=== PATIENT | female | born 1990 | race Caucasian/White ===

== ENCOUNTER 2017-06-24 10:39 | Outpatient (CLI) | payer BC, OTHER ==
[~2017-06-24] VITALS: Ht 162.6 cm; Wt 90.9 kg
[~2017-06-24 10:39] MED LIST: ENDOCET 5-3251 EACH PO; Motrin PO
[2017-06-24 11:01] VITALS: BP 128/71
[2017-06-24] MEDS ORDERED: CEPHALEXIN500 MG PO (11:08)
[2017-06-24] MEDS ORDERED: PRENATAL TABLE1 EAC3 PO (11:08)
[2017-06-24 13:10] VITALS: BP 119/71
== END 2017-06-24 14:00 | disposition home or self-care (01) ==
LOC: LDRP-OP 10:39 → 2WEST 10:40 → LDRP-OP 09-02 10:43
DX: O47.03 False labor before 37 completed weeks of gestation, third trimester (principal); O23.593 Infection of other part of genital tract in pregnancy, third trimester; N76.0 Acute vaginitis; B96.89 Other specified bacterial agents as the cause of diseases classified elsewhere; Z3A.34 34 weeks gestation of pregnancy
CPT/HCPCS: 59025; 87086; G0378; J0702; J7120

== ENCOUNTER 2017-06-25 12:00 | Outpatient (CLI) | payer BC, OTHER ==
[~2017-06-25] VITALS: Ht 162.6 cm; Wt 90.7 kg
[~2017-06-25 12:00] MED LIST changes: +CEPHALEXIN500 MG PO; +PRENATAL TABLE1 EAC3 PO
[2017-06-25 12:23] VITALS: BP 118/65
== END 2017-06-25 14:00 | disposition home or self-care (01) ==
LOC: LDRP-OP 12:00 → 2WEST 12:01 → LDRP-OP 23:19
DX: O47.03 False labor before 37 completed weeks of gestation, third trimester (principal); Z3A.34 34 weeks gestation of pregnancy; O99.513 Diseases of the respiratory system complicating pregnancy, third trimester; J45.909 Unspecified asthma, uncomplicated; Z87.891 Personal history of nicotine dependence; Z94.7 Corneal transplant status
CPT/HCPCS: 59025; G0378; J0702

== ENCOUNTER 2017-06-26 20:02 | Outpatient (CLI) | payer BC, OTHER ==
[2017-06-26 20:13] VITALS: BP 130/78
== END 2017-06-26 21:15 | disposition home or self-care (01) ==
LOC: LDRP-OP 20:02 → 2WEST 20:04 → LDRP-OP 09-04 14:10
DX: O47.03 False labor before 37 completed weeks of gestation, third trimester (principal); Z3A.34 34 weeks gestation of pregnancy
CPT/HCPCS: 59025; G0378

== ENCOUNTER 2017-07-27 00:08 | Inpatient (IN) | payer BC, OTHER ==
[2017-07-27] VITALS (18 sets, daily range): BP systolic 115–143; BP diastolic 66–90
[~2017-07-27] VITALS: Ht 162.6 cm; Wt 92.5 kg
[2017-07-27 04:45] LABS: BASOPHIL (%) 0.2 % (0-1); EOSINOPHIL (%) 0.7 % (0-5); EOSINOPHIL COUNT 0.1 K/uL (0-0.3); HEMATOCRIT 34.8 % (36.0-46.0); HEMOGLOBIN 11.8 G/DL (11.9-15.5); IMMATURE GRANULOCYTE (%) 0.4 % (0.0-0.7); LYMPHOCYTE (%) 11.1 % (15-42); LYMPHOCYTE COUNT 1.9 K/uL (1.0-2.8); MCH 32.4 PG (29.0-34.0); MCHC 33.9 G/DL (30.0-36.0); MCV 95.6 FL (83-99); NEUTROPHIL (%) 81.6 % (45-76); NEUTROPHIL COUNT 13.7 K/uL (1.8-6.4); PLATELET COUNT 269 K/uL (156-360); RBC DIS.WIDTH-CV 14.5 % (11.8-14.6); RBC DIS.WIDTH-SD 50.5 % (39-53); RED BLOOD COUNT 3.64 M/uL (3.80-5.20); WHITE BLOOD COUNT 16.7 K/uL (4.1-10.2)
[2017-07-27 05:20] LABS: AMPHETAMINE NEGATIVE (500 ng/mL); BARBITURATES NEGATIVE (200 ng/mL); BENZODIAZEPINES NEGATIVE (150 ng/mL); BUPRENORPHINE NEGATIVE (10 ng/mL); COCAINE NEGATIVE (150 ng/mL); METHADONE NEGATIVE (200 ng/mL); METHAMPHETAMINE NEGATIVE (500 ng/mL); OPIATES (MORPHINE) NEGATIVE (100 ng/mL); OXYCODONE NEGATIVE (100 ng/mL); PHENCYCLIDINE NEGATIVE (25 ng/mL); PROPOXYPHENE NEGATIVE (300 ng/mL); THC CANNABINOIDS NEGATIVE (50 ng/mL); TRICYCLIC ANTIDEPRESSANTS NEGATIVE (300 ng/mL)
[2017-07-28] MEDS ORDERED: IBUPROFEN800 MG PO (08:54)
== END 2017-07-28 13:46 | disposition home or self-care (01) | DRG 775 ==
LOC: LDRP-OP 00:08 → 2WEST 00:09 → LDRP-OP 09-04 21:40
PROVIDERS: Midwife
PROC: 10E0XZZ Delivery of Products of Conception, External Approach (ICD-10-PCS; principal; 2017-07-27)
PROC: 10907ZC Drainage of Amniotic Fluid, Therapeutic from Products of Conception, Via Natural or Artificial Opening (ICD-10-PCS; 2017-07-27)
DX: O69.81X0 Labor and delivery complicated by cord around neck, without compression, not applicable or unspecified (principal); Z3A.39 39 weeks gestation of pregnancy; Z37.0 Single live birth; Z94.7 Corneal transplant status
CPT/HCPCS: 85025; J0595